=== PATIENT | female | born 1945 | race Caucasian/White ===

== ENCOUNTER 2018-12-17 07:18 | Emergency (ER) | payer MEDICARE, MEDICAID ==
[~2018-12-17] VITALS: Ht 177.8 cm; Wt 55.0 kg
[~2018-12-17 07:18] MED LIST: ALBU8.5H8 IH; BUPR150T6 PO; CLON-370 PO; CLON-527 PO; ESCI20TA29 PO; METH4TAB81 PO; PANT-47 PO; PRED10TA23 PO
[2018-12-17] MEDS ORDERED: acetaminophen 650mg rectal suppository RC STA (08:08)
[2018-12-17] MEDS ORDERED: piperacillin/tazo 3.375gm/50ml 50 ML IV ONE (08:10)
[2018-12-17] MEDS ORDERED: normal saline 1000ML IV soln IV ONE (08:10)
[2018-12-17] MEDS ORDERED: DOXYCYCLINE 100MG CAPSULE PO STA (08:12)
[2018-12-17] MEDS ORDERED: ondansetron/PF 4mg/2ml inj IV ONE (08:15)
[2018-12-17] MEDS ORDERED: acetaminophen 325mg tablet PO ONE (08:15)
[2018-12-17 09:10] LABS: BASOPHILS % (AUTO) 0.1 % (0-1); EOSINOPHILS # (AUTO) 0.1 X10'3 (0-0.9); HEMATOCRIT 31.7 % (35.0-45.0); HEMOGLOBIN 10.7 g/dl (12.0-16.0); LYMPHOCYTES # (AUTO) 0.8 X10'3 (1.1-4.8); LYMPHOCYTES % (AUTO) 11.3 % (21-51); MEAN CORPUSCULAR HEMOGLOBIN 29.2 PG (27.0-31.0); MEAN CORPUSCULAR HGB CONC 33.8 g/dL (33.0-36.5); MEAN CORPUSCULAR VOLUME 86.4 FL (78-98); MEAN PLATELET VOLUME 8.1 FL (7.4-10.4); MONOCYTES # (AUTO) 0.5 X10'3 (0-0.9); MONOCYTES % (AUTO) 6.5 % (2-12); NEUTROPHILS % (AUTO) 81.1 % (42-75); PLATELET COUNT 152 X10'3 (140-440); RED BLOOD COUNT 3.67 X10'6 (4.20-5.60); RED CELL DISTRIBUTION WIDTH 14.4 % (11.5-14.5); WHITE BLOOD COUNT 7.4 X10'3 (4.5-11.0)
[2018-12-17 09:24] VITALS: BP 116/69
[2018-12-17 09:26] LABS: ALANINE AMINOTRANSFERASE 36 U/L (12-78); ALBUMIN 2.9 G/DL (3.4-5.0); ALBUMIN/GLOBULIN RATIO 0.8 (1.1-1.5); ALKALINE PHOSPHATASE 75 IU/L (46-116); ANION GAP 9 (8-16); ASPARTATE AMINO TRANSFERASE 36 U/L (10-37); BILIRUBIN,TOTAL 0.2 MG/DL (0.1-1.0); BLOOD UREA NITROGEN 15 MG/DL (7-18); BUN/CREATININE RATIO 23.1 (6.6-38.0); CALCIUM 8.5 MG/DL (8.5-10.1); CHLORIDE 103 MMOL/L (99-107); CREATININE 0.65 MG/DL (0.40-0.90); GLUCOSE 102 MG/DL (70-104); POTASSIUM 3.6 MMOL/L (3.5-5.1); SODIUM 140 MMOL/L (135-145); TOTAL CARBON DIOXIDE 27.6 MMOL/L (24-32); TOTAL PROTEIN 6.5 G/DL (6.4-8.2); eGFR 90 ML/MIN
[2018-12-17 09:38] LABS: INR 0.9 INR; PARTIAL THROMBOPLASTIN TIME 31 SECONDS (22-32); PROTHROMBIN TIME 9.4 SECONDS (9.0-12.0)
[2018-12-17] MEDS ORDERED: AMOX-580 PO (10:31)
[2018-12-17] MEDS ORDERED: DOXY100C43 PO (10:31)
[2018-12-17] MEDS ORDERED: ONDA8TAB6 PO (10:36)
== END 2018-12-17 11:26 | disposition home or self-care (01) ==
LOC: ER 07:19
DX: S61.432A Puncture wound without foreign body of left hand, initial encounter (principal); L03.114 Cellulitis of left upper limb; J44.9 Chronic obstructive pulmonary disease, unspecified; Z88.8 Allergy status to other drugs, medicaments and biological substances; Z79.899 Other long term (current) drug therapy; Z60.2 Problems related to living alone; W55.01XA Bitten by cat, initial encounter; Y93.89 Activity, other specified; Y92.89 Other specified places as the place of occurrence of the external cause; Y99.8 Other external cause status
CPT/HCPCS: 36415; 80053; 83605; 83735; 84145; 85025; 85610; 85651; 85730; 86140; 87040; 93005; 96365; 99284; J2405; J2543; J7030

== ENCOUNTER 2018-12-29 05:57 | Emergency (ER) | payer MEDICARE, MEDICAID ==
[~2018-12-29] VITALS: Ht 177.8 cm; Wt 55.5 kg
[~2018-12-29 05:57] MED LIST changes: +AMOX-580 PO; +ONDA8TAB6 PO
[2018-12-29] MEDS ORDERED: normal saline 1000ml 1,000 ML IV ONE (07:30)
[2018-12-29] MEDS ORDERED: iohexol 300mg/ml 100ml inj. ONE (07:46)
[2018-12-29 07:58] LABS: HEMATOCRIT 39.8 % (35.0-45.0); HEMOGLOBIN 13.3 g/dl (12.0-16.0); MEAN CORPUSCULAR HEMOGLOBIN 29.3 PG (27.0-31.0); MEAN CORPUSCULAR HGB CONC 33.5 g/dL (33.0-36.5); MEAN CORPUSCULAR VOLUME 87.6 FL (78-98); MEAN PLATELET VOLUME 7.2 FL (7.4-10.4); PLATELET COUNT 393 X10'3 (140-440); RED BLOOD COUNT 4.55 X10'6 (4.20-5.60); WHITE BLOOD COUNT 4.2 X10'3 (4.5-11.0)
[2018-12-29 08:20] LABS: ALANINE AMINOTRANSFERASE 15 U/L (12-78); ALBUMIN 3.7 G/DL (3.4-5.0); ALBUMIN/GLOBULIN RATIO 1.1 (1.1-1.5); ALKALINE PHOSPHATASE 70 IU/L (46-116); ANION GAP 9 (8-16); ASPARTATE AMINO TRANSFERASE 15 U/L (10-37); BILIRUBIN,TOTAL 0.3 MG/DL (0.1-1.0); BLOOD UREA NITROGEN 9 MG/DL (7-18); BUN/CREATININE RATIO 12.9 (6.6-38.0); CALCIUM 8.9 MG/DL (8.5-10.1); CHLORIDE 104 MMOL/L (99-107); GLUCOSE 84 MG/DL (70-104); POTASSIUM 4.3 MMOL/L (3.5-5.1); SODIUM 140 MMOL/L (135-145); TOTAL CARBON DIOXIDE 26.8 MMOL/L (24-32); TOTAL PROTEIN 7.1 G/DL (6.4-8.2); eGFR 82 ML/MIN
[2018-12-29 09:19] LABS: LARGE PLATELETS FEW; PLATELET ESTIMATE NORMAL; TOTAL CELLS COUNTED 100
[2018-12-29 10:11] VITALS: BP 110/60
== END 2018-12-29 10:12 | disposition home or self-care (01) ==
LOC: ER 05:57
DX: S61.452D Open bite of left hand, subsequent encounter (principal); J44.9 Chronic obstructive pulmonary disease, unspecified; Z87.01 Personal history of pneumonia (recurrent); Z88.6 Allergy status to analgesic agent; Z79.899 Other long term (current) drug therapy; W55.01XD Bitten by cat, subsequent encounter
CPT/HCPCS: 36415; 73130; 73201; 80053; 85025; 85651; 86140; 99284; J7030; Q9967

== ENCOUNTER 2021-02-26 13:05 | Emergency (ER) | payer MEDICARE, MEDICAID ==
[~2021-02-26] VITALS: Ht 177.8 cm; Wt 54.1 kg
[~2021-02-26 13:05] MED LIST changes: +ACET325T53 PO; +ALBU2.5V13 NEB; -ALBU8.5H8 IH; -AMOX-580 PO; +ARIP30TA3 PO; -BUPR150T6 PO; +BUSP10TA10 PO; -CLON-370 PO; +FEXO-25 PO; +HYDR-4353 PO; +LAMO100T65 PO; +MELA1TAB28 PO; -METH4TAB81 PO; -ONDA8TAB6 PO; -PANT-47 PO; -PRED10TA23 PO; +TIZA4TAB11 PO; +UMEC1DIS PO; +ZOLP10TA PO
[2021-02-26 13:32] LABS: BASOPHILS # (AUTO) 0.1 X10'3 (0-0.2); BASOPHILS % (AUTO) 0.9 % (0-1); EOSINOPHILS # (AUTO) 0.2 X10'3 (0-0.9); EOSINOPHILS % (AUTO) 2.7 % (0-6); HEMATOCRIT 41.7 % (35.0-45.0); HEMOGLOBIN 13.7 g/dl (12.0-16.0); LYMPHOCYTES # (AUTO) 1.1 X10'3 (1.1-4.8); LYMPHOCYTES % (AUTO) 18.1 % (21-51); MEAN CORPUSCULAR HEMOGLOBIN 28.8 PG (27.0-31.0); MEAN CORPUSCULAR HGB CONC 32.8 g/dL (33.0-36.5); MEAN PLATELET VOLUME 7.4 FL (7.4-10.4); MONOCYTES # (AUTO) 0.4 X10'3 (0-0.9); MONOCYTES % (AUTO) 6.5 % (2-12); NEUTROPHILS # (AUTO) 4.2 X10'3 (1.8-7.7); NEUTROPHILS % (AUTO) 71.8 % (42-75); PLATELET COUNT 252 X10'3 (140-440); RED BLOOD COUNT 4.74 X10'6 (4.20-5.60); RED CELL DISTRIBUTION WIDTH 14.5 % (11.5-14.5); WHITE BLOOD COUNT 5.9 X10'3 (4.5-11.0)
[2021-02-26 14:19] LABS: ALANINE AMINOTRANSFERASE 17 U/L (12-78); ALBUMIN 4.3 G/DL (3.4-5.0); ALBUMIN/GLOBULIN RATIO 1.3 (1.1-1.5); ALKALINE PHOSPHATASE 91 IU/L (46-116); ANION GAP 10 (8-16); ASPARTATE AMINO TRANSFERASE 16 U/L (10-37); BILIRUBIN,TOTAL 0.3 MG/DL (0.1-1.0); BLOOD UREA NITROGEN 15 MG/DL (7-18); BUN/CREATININE RATIO 14.6 (6.6-38.0); CALCIUM 8.9 MG/DL (8.5-10.1); CHLORIDE 105 MMOL/L (99-107); CREATININE 1.03 MG/DL (0.40-0.90); GLUCOSE 120 MG/DL (70-104); POTASSIUM 4.4 MMOL/L (3.5-5.1); SODIUM 142 MMOL/L (135-145); TOTAL CARBON DIOXIDE 26.8 MMOL/L (24-32); TOTAL PROTEIN 7.7 G/DL (6.4-8.2); eGFR 52 ML/MIN
[2021-02-26] MEDS ORDERED: pantoprazole 40 MG vial IV ONE (14:20)
[2021-02-26] MEDS ORDERED: normal saline 1000ML IV soln IVB ONE (14:20)
[2021-02-26 14:33] LABS: CLARITY,URINE SLIGHTLY CLOUDY (Clear); COLOR,URINE YELLOW (Yellow); GLUCOSE, URINE NEGATIVE (Neg); KETONES,URINE NEGATIVE (Neg); LEUKOCYTE ESTERASE ,URINE SMALL (Neg); NITRITES, URINE NEGATIVE (Neg); OCCULT BLOOD,URINE NEGATIVE (Neg); PROTEIN,URINE NEGATIVE (Neg); UROBILINOGEN,URINE 0.2 E.U/dL (0.2-1.0)
[2021-02-26 14:52] LABS: UA COLLECTION TYPE CLN CATCH MIDSTREAM
[2021-02-26 14:58] LABS: HYALINE CASTS 0-3 /LPF (NEGATIVE); MUCUS STRANDS FEW /LPF (Neg); SQUAMOUS EPITHELIAL CELL,UR FEW /LPF (FEW); TRANSITIONAL EPI CELLS,URINE FEW /HPF
[2021-02-26 15:00] LABS: BACTERIA,URINE NONE SEEN /HPF (Neg); RBC,URINE 0-2 /HPF (0-2)
[2021-02-26 15:02] VITALS: BP 120/60
== END 2021-02-26 15:05 | disposition home or self-care (01) ==
LOC: ER 13:05
DX: R42 Dizziness and giddiness (principal); K92.1 Melena; R10.84 Generalized abdominal pain; J44.9 Chronic obstructive pulmonary disease, unspecified; F41.9 Anxiety disorder, unspecified; F32.9 Major depressive disorder, single episode, unspecified; F17.200 Nicotine dependence, unspecified, uncomplicated; Z87.01 Personal history of pneumonia (recurrent); Z60.2 Problems related to living alone; Z88.6 Allergy status to analgesic agent; Z79.899 Other long term (current) drug therapy
CPT/HCPCS: 36415; 80053; 81001; 85025; 86870; 86885; 86900; 86901; 87088; 96361; 96374; 99283; C9113; J7030

== ENCOUNTER 2021-09-27 07:50 | Day surgery (SDC) | payer MEDICARE, MEDICAID ==
[2021-09-20 16:55] LABS: UA COLLECTION TYPE CLN CATCH MIDSTREAM
[2021-09-20 16:57] LABS: CLARITY,URINE CLEAR (Clear); COLOR,URINE YELLOW (Yellow); GLUCOSE, URINE NEGATIVE (Neg); KETONES,URINE NEGATIVE (Neg); PROTEIN,URINE TRACE mg/dl (Neg)
[2021-09-20 16:58] LABS: LEUKOCYTE ESTERASE ,URINE NEGATIVE (Neg); NITRITES, URINE NEGATIVE (Neg); OCCULT BLOOD,URINE NEGATIVE (Neg); UROBILINOGEN,URINE 0.2 E.U/dL (0.2-1.0)
[2021-09-20 17:10] LABS: BASOPHILS % (AUTO) 0.8 % (0-1); EOSINOPHILS # (AUTO) 0.1 X10'3 (0-0.9); EOSINOPHILS % (AUTO) 1.3 % (0-6); LYMPHOCYTES # (AUTO) 1.4 X10'3 (1.1-4.8); LYMPHOCYTES % (AUTO) 27.8 % (21-51); MEAN CORPUSCULAR HEMOGLOBIN 29.5 PG (27.0-31.0); MEAN CORPUSCULAR HGB CONC 33.8 g/dL (33.0-36.5); MEAN CORPUSCULAR VOLUME 87.2 FL (78-98); MEAN PLATELET VOLUME 7.5 FL (7.4-10.4); MONOCYTES # (AUTO) 0.4 X10'3 (0-0.9); MONOCYTES % (AUTO) 7.2 % (2-12); NEUTROPHILS # (AUTO) 3.2 X10'3 (1.8-7.7); NEUTROPHILS % (AUTO) 62.9 % (42-75); PRE OP HEMATOCRIT 40.4 % (35.0-45.0); PRE OP HEMOGLOBIN 13.7 g/dL (12.0-16.0); PRE OP PLATELET COUNT 220 X10'3 (140-440); RED BLOOD COUNT 4.63 X10'6 (4.20-5.60); RED CELL DISTRIBUTION WIDTH 14.9 % (11.5-14.5)
[2021-09-20 17:11] LABS: ALBUMIN 4.1 G/DL (3.4-5.0); ALBUMIN/GLOBULIN RATIO 1.2 (1.1-1.5); ALKALINE PHOSPHATASE 74 IU/L (46-116); BLOOD UREA NITROGEN 9 MG/DL (7-18); BUN/CREATININE RATIO 10.7 (6.6-38.0); CHLORIDE 103 MMOL/L (99-107); CREATININE 0.84 MG/DL (0.40-0.90); PRE OP ALT 28 U/L (30-65); PRE OP ANION GAP 7 (8-16); PRE OP AST 19 U/L (10-37); PRE OP BILIRUB, TOTAL 0.4 MG/DL (0.0-1.0); PRE OP GLUCOSE 90 MG/DL (70-104); PRE OP SODIUM 140 MMOL/L (135-145); TOTAL CARBON DIOXIDE 29.6 MMOL/L (24-32); TOTAL PROTEIN 7.4 G/DL (6.4-8.2); eGFR 66 ML/MIN
[2021-09-20 17:38] LABS: MUCUS STRANDS FEW /LPF (Neg); SQUAMOUS EPITHELIAL CELL,UR FEW /LPF (FEW)
[2021-09-20 17:39] LABS: BACTERIA,URINE FEW /HPF (Neg); RBC,URINE 0-2 /HPF (0-2); WBC CLUMPS,URINE FEW /HPF (NEGATIVE); WBC,URINE 0-4 /HPF (0-4)
[~2021-09-27] VITALS: Ht 177.8 cm; Wt 58.5 kg
[2021-09-27] VITALS (16 sets, daily range): BP systolic 101–141; BP diastolic 53–70
[~2021-09-27 07:50] MED LIST changes: -ACET325T53 PO; -ARIP30TA3 PO; +ARIP5TAB60 PO; -CLON-527 PO; -HYDR-4353 PO; +MELA1TAB21 PO; -MELA1TAB28 PO; +MONT10TA21 PO; +ceFOXitin 2GM-NS 100mL ADDvant 100 ML IV ONE; +famotidine 20mg tablet PO ONE; +ringers solution, lacted 1,000 ML IV SCH
--- NOTE | 2021-09-27 08:10 | NUR ---
PT. QUIT SMOKING IN 08/30, BUT STATED SHE HAS SMOKED OVER THE PAST COUPLE WEEKS. Addendum: 09/27/21 at 0949 by Mansi Glynn RN Amended: Links added.
[2021-09-27] MEDS ORDERED: neomy sulf/polymyxin B sulf. GU irrigation 1ml amp IR ONE (08:49)
[2021-09-27] MEDS ORDERED: epiNEPHrine 1 mg/ml inj ONE (08:49)
[2021-09-27] MEDS ORDERED: vasoPRESSIN 20 units/ml inj. ONE (08:49)
[2021-09-27] MEDS ORDERED: BUPIVAcaine/PF 2.5 mg/ml (0.25%) 30ml vial ONE (08:49)
[2021-09-27] MEDS ORDERED: hydrALAZINE 20mg/ml inj. IV PRN (09:20)
[2021-09-27] MEDS ORDERED: morphine 2 MG/ML inj. syringe IV PRN (09:20)
[2021-09-27] MEDS ORDERED: ondansetron/PF 4mg/2ml inj IV PRN ×2 (09:20→11:00)
[2021-09-27] MEDS ORDERED: meperidine/PF 25mg/ml syringe IV PRN (09:20)
[2021-09-27] MEDS ORDERED: morphine 4 MG/ML inj SYRINge IV PRN (09:20)
[2021-09-27] MEDS ORDERED: labetalol 20mg/4ml (5mg/ml) syringe IV PRN (09:20)
[2021-09-27] MEDS ORDERED: HYDROmorphone/PF 0.2 MG/ML SYRINGE IV PRN ×2 (09:20)
[2021-09-27] MEDS ORDERED: proCHLORperazine 10 MG/2 ml inj IV PRN (09:20)
[2021-09-27] MEDS ORDERED: ringers solution, lacted 1,000 ML IV SCH (09:20)
[2021-09-27] MEDS ORDERED: acetaminophen 1,000mg/100ml IV 100 ML IV PRN (09:20)
[2021-09-27] MEDS ORDERED: midazolam 1 mg/ML 2ml injection ONE (09:24)
[2021-09-27] MEDS ORDERED: fentaNYL/PF 50MCG/1 ML 2ML syringe ONE (09:24)
[2021-09-27] MEDS ORDERED: propofol inj 20 ML IV ONE (09:44)
[2021-09-27] MEDS ORDERED: LIDOcaine 2% (20mg/ml) 5ml vial ONE (09:44)
[2021-09-27] MEDS ORDERED: neostigmine methylsulfate 1 MG/ML 10ml vial ONE ×2 (09:44→10:56)
[2021-09-27] MEDS ORDERED: ondansetron/PF 4mg/2ml inj ONE (09:45)
[2021-09-27] MEDS ORDERED: dexamethasone sod phosphate 4mg/ml inj. ONE (09:45)
[2021-09-27] MEDS ORDERED: rocuronium 10mg/ml inj IV ONE (09:45)
[2021-09-27] MEDS ORDERED: clindamycin phosphate 40gm vag cream ONE (10:35)
[2021-09-27] MEDS ORDERED: morphine 4 MG/ML inj SYRINge ONE (10:48)
[2021-09-27] MEDS ORDERED: glycopyrrolate 0.2mg/ml inj ONE (10:56)
[2021-09-27] MEDS ORDERED: magnesium hydroxide 30ml (MOM) UD suspension PO PRN (11:00)
[2021-09-27] MEDS ORDERED: normal saline 500ml IV soln 500 ML IV PRN (11:00)
[2021-09-27] MEDS ORDERED: diphenhydrAMINE 50 mg/ml inj IV PRN (11:00)
[2021-09-27] MEDS ORDERED: temazepam 15mg capsule PO PRN (11:00)
[2021-09-27] MEDS ORDERED: metoclopramide 5 mg/ml inj IV PRN (11:00)
[2021-09-27] MEDS ORDERED: LORazepam 2 mg/ml vial IV PRN (11:00)
[2021-09-27] MEDS ORDERED: HYDROcodone/acetaminophen 10/325mg tab PO PRN (11:00)
--- NOTE | 2021-09-27 11:09 | NUR ---
Received from OR via ORTHO BED , accompanied by Anesthesiologist RICARDO and report given by Anesthesiolgist. PATIENT WITH 20G PIV IN LEFT UE RUNNING LR AT 100. VSS. 3 LAP SITES DERMABONDED CLOSED. NO DRAINAGE. MYRANDA PAD IN PLACE WITH HEALY CATHETER PRESENT. SCDS DONNED IN RR. 10L MASKN ON WITH 100% SATRUATIONS. VSS. DENIES PAIN.-ONLY C.O. CRAMPING. DECLINES MEDS AT THIS TIME. Addendum: 09/27/21 at 1123 by Douglas Tipton RN, RN Amended: Links added.
--- NOTE | 2021-09-27 12:00 | NUR ---
Received report from NHUNG Cole. Awaiting patient arrival.
[2021-09-27] MEDS: ringers solution, lacted 1,000 ML IV SCH ×2 (12:15→20:30)
--- NOTE | 2021-09-27 12:15 | NUR ---
patient arrived to the floor. VSS. c/o 02/17 mild cramping.
[2021-09-27] MEDS: HYDROcodone/acetaminophen 10/325mg tab PO PRN (13:10)
--- NOTE | 2021-09-27 18:26 | NUR ---
Problems reprioritized. Patient report given, questions answered & plan of care reviewed with NHUNG Das.
[2021-09-27] MEDS: docusate sod 100mg capsule PO SCH (20:37)
[2021-09-28] VITALS: BP 92/50
[2021-09-28] MEDS: ringers solution, lacted 1,000 ML IV SCH (03:05)
[2021-09-28 06:13] LABS: BASOPHILS % (AUTO) 0.5 % (0-1); EOSINOPHILS % (AUTO) 0.5 % (0-6); HEMATOCRIT 27.8 % (35.0-45.0); HEMOGLOBIN 9.3 g/dl (12.0-16.0); LYMPHOCYTES # (AUTO) 0.7 X10'3 (1.1-4.8); LYMPHOCYTES % (AUTO) 15.5 % (21-51); MEAN CORPUSCULAR HEMOGLOBIN 29.9 PG (27.0-31.0); MEAN CORPUSCULAR HGB CONC 33.4 g/dL (33.0-36.5); MEAN CORPUSCULAR VOLUME 89.5 FL (78-98); MEAN PLATELET VOLUME 7.6 FL (7.4-10.4); MONOCYTES # (AUTO) 0.4 X10'3 (0-0.9); NEUTROPHILS # (AUTO) 3.6 X10'3 (1.8-7.7); NEUTROPHILS % (AUTO) 74.5 % (42-75); PLATELET COUNT 134 X10'3 (140-440); RED BLOOD COUNT 3.11 X10'6 (4.20-5.60); RED CELL DISTRIBUTION WIDTH 14.9 % (11.5-14.5); WHITE BLOOD COUNT 4.8 X10'3 (4.5-11.0)
[2021-09-28 06:32] LABS: ALBUMIN 2.7 G/DL (3.4-5.0); ANION GAP 9 (8-16); BLOOD UREA NITROGEN 8 MG/DL (7-18); BUN/CREATININE RATIO 11.6 (6.6-38.0); CHLORIDE 107 MMOL/L (99-107); CREATININE 0.69 MG/DL (0.40-0.90); GLUCOSE 87 MG/DL (70-104); POTASSIUM 4.2 MMOL/L (3.5-5.1); SODIUM 142 MMOL/L (135-145); TOTAL CARBON DIOXIDE 26.2 MMOL/L (24-32); eGFR 83 ML/MIN
--- NOTE | 2021-09-28 06:49 | NUR ---
Patient in room [facility]. I have received report from NHUNG Das and had the opportunity to ask questions and assume patient care.
--- NOTE | 2021-09-28 06:51 | NUR ---
Problems reprioritized. Patient report given, questions answered & plan of care reviewed with NHUNG Lomax.
[2021-09-28] MEDS: HYDROcodone/acetaminophen 10/325mg tab PO PRN (07:33)
[2021-09-28] MEDS: docusate sod 100mg capsule PO SCH (07:33)
[2021-09-28 08:00] VITALS: BP 109/52
[2021-09-28] MEDS ORDERED: enoxaparin 40mg/0.4ml syringe SQ SCH (08:00)
[2021-09-28 11:00] VITALS: BP 116/44
--- NOTE | 2021-09-28 11:20 | NUR ---
Pt discharged to home, with all belongings, via private vehicle accompanied by friend. Discharge instructions and medications reviewed. New prescription filled by pt PATHOLOGIST. Pt instructed to watch for signs/symptoms of infection, and to notify Dr Samson's office with any concerns. Pt also instructed to only shower, no baths or hot tubs, until cleared by surgeon. Pt stated understanding and willingness to comply with all discharge instructions. IV DC'd by pt without RN's knowledge or okay. Unable to verify if cannula intact as pt threw it away in trash can that was emptied by housekeeping. Pt transported to [facility] via wheelchair by PCT.
== END 2021-09-28 11:33 | disposition home or self-care (01) ==
LOC: PAS 07:50 → SUR 3N 11:00 → PAS 09-28 11:33
PROVIDERS: ATTEND Obstetrics & Gynecology Obstetrics
DX: R19.09 Other intra-abdominal and pelvic swelling, mass and lump (principal); N85.8 Other specified noninflammatory disorders of uterus; D25.2 Subserosal leiomyoma of uterus; N83.332 Acquired atrophy of left ovary and fallopian tube; N83.331 Acquired atrophy of right ovary and fallopian tube; D26.1 Other benign neoplasm of corpus uteri; F41.9 Anxiety disorder, unspecified; J44.9 Chronic obstructive pulmonary disease, unspecified; F32.9 Major depressive disorder, single episode, unspecified; Z20.822 Contact with and (suspected) exposure to COVID-19; Z85.828 Personal history of other malignant neoplasm of skin; Z79.899 Other long term (current) drug therapy; Z98.890 Other specified postprocedural states; Z87.891 Personal history of nicotine dependence; Z88.8 Allergy status to other drugs, medicaments and biological substances; Z88.1 Allergy status to other antibiotic agents
CPT/HCPCS: 36415; 58552; 71046; 80048; 80053; 81001; 82948; 85025; 86870; 86885; 86900; 86901; 87081; J0171; J0694; J1100; J2001; J2250; J2270; J2405; J2704; J2710; J3010; J3490; J7120; U0003; U0005; Z7506; Z7508; Z7512; 88307; A4314; A4618; A7000; G0378; J1650

== ENCOUNTER 2022-08-30 06:45 | Emergency (ER) | payer MEDICARE, MEDICAID ==
[~2022-08-30] VITALS: Ht 177.8 cm; Wt 56.8 kg
[~2022-08-30 06:45] MED LIST changes: -ceFOXitin 2GM-NS 100mL ADDvant 100 ML IV ONE; -famotidine 20mg tablet PO ONE; -ringers solution, lacted 1,000 ML IV SCH
[2022-08-30 07:03] VITALS: BP 94/41
== END 2022-08-30 15:33 | disposition left against medical advice (07) ==
LOC: ER 06:46
DX: R10.9 Unspecified abdominal pain (principal); Z53.21 Procedure and treatment not carried out due to patient leaving prior to being seen by health care provider

== ENCOUNTER 2022-11-15 17:11 | Emergency (ER) | payer MEDICARE, MEDICAID ==
[~2022-11-15] VITALS: Ht 177.8 cm; Wt 54.5 kg
[2022-11-15 18:48] VITALS: BP 111/58
[2022-11-15] MEDS ORDERED: TETanus/Pertussis (Acell)/Diphther VAC/PF (Tdap-Adult) 0.5ml syringe IMVAC ONE (18:55)
[2022-11-15] MEDS ORDERED: ondansetron/PF 4mg/2ml inj IV ONE (20:20)
== END 2022-11-15 20:48 | disposition left against medical advice (07) ==
LOC: ER 17:12
DX: S01.81XA Laceration without foreign body of other part of head, initial encounter (principal); J44.9 Chronic obstructive pulmonary disease, unspecified; S05.11XA Contusion of eyeball and orbital tissues, right eye, initial encounter; F31.9 Bipolar disorder, unspecified; Z88.1 Allergy status to other antibiotic agents; Z88.8 Allergy status to other drugs, medicaments and biological substances; Z88.6 Allergy status to analgesic agent; Z79.899 Other long term (current) drug therapy; Z79.1 Long term (current) use of non-steroidal anti-inflammatories (NSAID); W18.39XA Other fall on same level, initial encounter; Y93.89 Activity, other specified; Y92.89 Other specified places as the place of occurrence of the external cause; Y99.8 Other external cause status
CPT/HCPCS: 70450; 90471; 90715; 99284; 99285

== ENCOUNTER 2024-08-20 03:49 | Emergency (ER) | payer MEDICARE, MEDICAID ==
[~2024-08-20] VITALS: Ht 177.8 cm; Wt 58.2 kg
[~2024-08-20 03:49] MED LIST changes: +ARIP5TAB53 PO; -ARIP5TAB60 PO; -MELA1TAB21 PO; +MELA1TAB73 PO; +MONT-47 PO; -MONT10TA21 PO
[2024-08-20] MEDS: acetaminophen 1,000mg/100ml IV 100 ML IV ONE (04:44)
[2024-08-20 06:16] LABS: ALANINE AMINOTRANSFERASE 22 U/L (12-78); ALBUMIN 3.7 G/DL (3.4-5.0); ALBUMIN/GLOBULIN RATIO 1.2 (1.1-1.5); ALKALINE PHOSPHATASE 74 IU/L (46-116); ANION GAP 7 (8-16); ASPARTATE AMINO TRANSFERASE 23 U/L (10-37); BILIRUBIN,TOTAL 0.2 MG/DL (0.1-1.0); BLOOD UREA NITROGEN 10 MG/DL (7-18); BUN/CREATININE RATIO 11.6 (10.0-20.0); CALCIUM 8.5 MG/DL (8.5-10.1); CHLORIDE 100 MMOL/L (99-107); CREATININE 0.86 MG/DL (0.40-0.90); GLUCOSE 104 MG/DL (70-104); SODIUM 135 MMOL/L (135-145); TOTAL CARBON DIOXIDE 28.3 MMOL/L (24-32); TOTAL PROTEIN 6.7 G/DL (6.4-8.2); eCRCL 50 ML/MIN; eGFR 64 ML/MIN
[2024-08-20 06:21] LABS: BASOPHILS % (AUTO) 0.5 % (0-1); EOSINOPHILS % (AUTO) 0.3 % (0-6); HEMOGLOBIN 11.8 g/dl (12.0-16.0); LYMPHOCYTES # (AUTO) 0.7 X10'3 (1.1-4.8); LYMPHOCYTES % (AUTO) 8.9 % (21-51); MEAN CORPUSCULAR HEMOGLOBIN 29.8 PG (27.0-31.0); MEAN CORPUSCULAR HGB CONC 32.7 g/dL (33.0-36.5); MEAN CORPUSCULAR VOLUME 91.1 FL (78-98); MONOCYTES # (AUTO) 0.5 X10'3 (0-0.9); MONOCYTES % (AUTO) 6.8 % (2-12); NEUTROPHILS # (AUTO) 6.2 X10'3 (1.8-7.7); NEUTROPHILS % (AUTO) 83.5 % (42-75); PLATELET COUNT 181 X10'3 (140-440); RED BLOOD COUNT 3.95 X10'6 (4.20-5.60); RED CELL DISTRIBUTION WIDTH 14.9 % (11.5-14.5); WHITE BLOOD COUNT 7.4 X10'3 (4.5-11.0)
[2024-08-20 06:25] LABS: PRO BRAIN NATRIURETIC PEPTIDE 255 PG/ML (0-450)
[2024-08-20 06:46] LABS: POTASSIUM 4.4 MMOL/L (3.5-5.1)
[2024-08-20 08:30] VITALS: BP 135/62; PULSE 66; RESP 16; TEMP 98.1; O2SAT 97
== END 2024-08-20 08:35 | disposition home or self-care (01) ==
LOC: ER 03:50
DX: S52.592A Other fractures of lower end of left radius, initial encounter for closed fracture (principal); J44.9 Chronic obstructive pulmonary disease, unspecified; F41.9 Anxiety disorder, unspecified; F32.A Depression, unspecified; Z88.1 Allergy status to other antibiotic agents; Z88.8 Allergy status to other drugs, medicaments and biological substances; Z79.899 Other long term (current) drug therapy; Z60.2 Problems related to living alone; W18.39XA Other fall on same level, initial encounter; Y93.89 Activity, other specified; Y92.89 Other specified places as the place of occurrence of the external cause; Y99.8 Other external cause status
CPT/HCPCS: 25605; 36415; 71045; 73090; 73100; 73110; 80053; 83880; 84484; 85025; 93005; 96365; 99285; A4565; A6446; A6449; J0131